=== PATIENT | female | born 1995 | race Two or more races ===

== ENCOUNTER 2024-02-24 15:29 | Outpatient (CLI) | payer OTHER | END 2024-02-24 15:32 | disposition home or self-care (01) | LOC: PRENATAL 15:29 | PROVIDERS: ATTEND Obstetrics & Gynecology Maternal & Fetal Medicine | DX: O35.9XX0 Maternal care for (suspected) fetal abnormality and damage, unspecified, not applicable or unspecified (principal); O35.3XX0 Maternal care for (suspected) damage to fetus from viral disease in mother, not applicable or unspecified; O44.02 Complete placenta previa NOS or without hemorrhage, second trimester; Z3A.19 19 weeks gestation of pregnancy ==

== ENCOUNTER 2024-05-24 09:35 | Outpatient (CLI) | payer OTHER | END 2024-05-24 10:17 | disposition home or self-care (01) | LOC: PRENATAL 09:35 | PROVIDERS: ATTEND Obstetrics & Gynecology Maternal & Fetal Medicine | DX: O26.849 Uterine size-date discrepancy, unspecified trimester (principal); O36.8199 Decreased fetal movements, unspecified trimester, other fetus; O40.1XX0 Polyhydramnios, first trimester, not applicable or unspecified; Z3A.32 32 weeks gestation of pregnancy ==

== ENCOUNTER 2024-07-19 05:19 | Inpatient (IN) | payer OTHER ==
[~2024-07-19] VITALS: Ht 154.9 cm; Wt 79.8 kg
[2024-07-19 04:41] VITALS: BP 108/61
[2024-07-19] MEDS ORDERED: RINGERS SOLUTION,LACTATED 1,000 ML IV SCH (05:30)
[2024-07-19] MEDS ORDERED: PRENATAL TABLE1 EAC4 PO (05:47)
[2024-07-19] MEDS ORDERED: IRON236 MG PO (05:47)
[2024-07-19 06:57] LABS: INR 0.94; PARTIAL THROMBOPLASTIN TIME 27.6 SECONDS (22.0-34.0); PROTHROMBIN TIME 10.3 SECONDS (9.0-11.5)
[2024-07-19 07:23] LABS: HEMATOCRIT 31.8 % (36.0-45.00); HEMOGLOBIN 11.1 g/dL (12.0-15.00); MEAN CELL VOLUME 81.7 fL (80.00-100.00); MEAN CORPUSCULAR HEMOGLOBIN 28.4 pg (27.00-32.0); MEAN CORPUSCULAR HGB CONC 34.8 g/dl (32.0-36.0); PLATELET COUNT 250 K/uL (150-450); RED BLOOD COUNT 3.89 M/uL (4.00-6.00); RED CELL DISTRIBUTION WIDTH 14.5 % (11.5-14.5)
[2024-07-19 07:29] LABS: ALBUMIN 2.8 gm/dL (3.4-5.0); BILIRUBIN TOTAL 0.29 mg/dL (0.3-1.2); CALCIUM 8.8 mg/dL (8.5-10.1); CREATININE SERUM 0.64 mg/dL (0.55-1.02); GFR 110.49; GLOBULINA 3.6 G/DL (2.4-3.5); POTASSIUM 4.28 mEq/L (3.5-5.1); TOTAL PROTEIN 6.4 gm/dL (6.4-8.2)
[2024-07-19 07:40] VITALS: BP 113/82
[2024-07-19 07:40] LABS: URINE APPEARANCE Cloudy; URINE BILIRRUBIN Negative (NEGATIVE); URINE BLOOD Large; URINE COLOR Yellow; URINE GLUCOSE Negative (NEGATIVE); URINE KETONE Negative (NEGATIVE); URINE LEUKOCYTE Moderate; URINE NITRATE Negative; URINE PROTEIN Trace (NEGATIVE)
[2024-07-19 07:43] LABS: URINE BACTERIA 3059.1 uL (0.0-1933); URINE RBC 566.6 uL (0.0-20.8); URINE WBC 337.3 uL (0.0-23.2)
[2024-07-19] MEDS ORDERED: MEPERIDINE HCL/PF 25 MG/ML VIAL IV ONE ×2 (08:15→12:30)
[2024-07-19] MEDS ORDERED: PROMETHAZINE HCL 25 MG/ML AMPUL IV NR (08:15)
[2024-07-19 11:04] VITALS: BP 120/74
[2024-07-19 12:24] VITALS: BP 118/68
[2024-07-19] MEDS ORDERED: PROMETHAZINE HCL 25 MG/ML AMPUL IV ONE (12:30)
[2024-07-19] MEDS ORDERED: OXYTOCIN 500 ML IV SCH (13:45)
[2024-07-19 15:10] VITALS: BP 129/73
[2024-07-19] MEDS ORDERED: CHLORHEXIDINE GLUCONATE 120 ML BOTTLE TOP ONE (20:00)
[2024-07-19] MEDS ORDERED: IBUprofen 400 MG TABLET PO PRN (20:00)
[2024-07-19] MEDS ORDERED: OXYTOCIN 1,000 ML IV SCH (20:00)
[2024-07-19 23:42] VITALS: BP 103/65
[2024-07-20 02:17] VITALS: BP 111/72
[2024-07-20 08:42] VITALS: BP 93/62
[2024-07-20 16:19] VITALS: BP 129/67
[2024-07-21 02:35] VITALS: BP 104/67
[2024-07-21 08:36] VITALS: BP 105/61
[2024-07-21] MEDS ORDERED: BENZOCAINE/MENTHOL 90 ML BOTTLE TOP SCH (12:00)
== END 2024-07-21 14:20 | disposition home or self-care (01) | DRG 807 ==
LOC: LDR 05:19 → OB/GYN 20:57
PROVIDERS: ADMIT Obstetrics & Gynecology; ATTEND Obstetrics & Gynecology
PROC: 10E0XZZ Delivery of Products of Conception, External Approach (ICD-10-PCS; principal; 2024-07-19)
PROC: 0W8NXZZ Division of Female Perineum, External Approach (ICD-10-PCS; 2024-07-19)
PROC: 4A1HXCZ Monitoring of Products of Conception, Cardiac Rate, External Approach (ICD-10-PCS; 2024-07-19)
DX: O80 Encounter for full-term uncomplicated delivery (principal); Z37.0 Single live birth; Z3A.40 40 weeks gestation of pregnancy; Z20.822 Contact with and (suspected) exposure to COVID-19